=== PATIENT | female | born 1990 | race Caucasian/White ===

== ENCOUNTER 2020-11-13 12:11 | Emergency (ER) | payer SELFPAY ==
[~2020-11-13] VITALS: Ht 172.7 cm; Wt 68.2 kg
[2020-11-13 13:36] VITALS: BP 116/55
[2020-11-13 14:23] LABS: COVID AG,FIA SOURCE NASOPHARYNGEAL
== END 2020-11-13 14:37 | disposition home or self-care (01) ==
LOC: EMS 12:11
DX: R05 Cough (principal); Z20.822 Contact with and (suspected) exposure to COVID-19
CPT/HCPCS: 71045; 87426; 99284; U0003